=== PATIENT | female | born 1995 | race Caucasian/White ===

== ENCOUNTER → 2017-06-25 | Outpatient (CLI) | payer OTHER ==
--- NOTE | 2017-06-25 21:33 | DIAGNOSTIC IMAGING REPORT ---
MRI left knee no contrast CLINICAL HISTORY: Left knee pain status post no boarding injury COMPARISON STUDY: No previous studies for comparison. FINDINGS: Imaging was performed in the axial, coronal, and sagittal planes. The quadriceps and patellar tendons appear intact. The anterior posterior cruciate ligaments appear intact. No meniscal tears are visualized. The medial and lateral collateral ligaments appear intact. There is no evidence of occult fracture or bone bruise. The patellar retinacular structures appear intact. IMPRESSION: No evidence of internal derangement Electronically signed by: Jovi Daniels M.D. 06/25/2017 9:31 PM Dictated Date/Time: 06/25/2017 9:29 PM
== END | disposition home or self-care (01) ==
LOC: C.MRI 20:23
PROVIDERS: ATTEND Family Medicine
DX: S89.92XA Unspecified injury of left lower leg, initial encounter (principal); M79.605 Pain in left leg; M25.562 Pain in left knee; X58.XXXA Exposure to other specified factors, initial encounter